=== PATIENT | male | born 1990 | race Caucasian/White ===

== ENCOUNTER 2023-01-07 10:43 | Outpatient (REF) | payer MEDICAID, SELFPAY ==
[2023-01-08 10:59] LABS: Abs Immature Grans 0.01 10^3/uL (0.0-0.06); Absolute Basophil Count 0.04 10^3/uL (0.0-0.2); Absolute Eosinophil Count 0.22 10^3/uL (0.0-0.7); Absolute Lymphocyte Count 1.33 10^3/uL (1.2-3.4); Absolute Monocyte Count 0.55 10^3/uL (0.1-0.8); Basophils % 0.8; Eosinophils % 4.6; HGB 15.5 g/dL (13.5-17.5); Immature Grans % 0.2; MCH 32.3 pg (27.0-33.0); MCHC 34.4 % (32.0-36.0); MCV 94 fL (80-95); MPV 11.9 fL (8.0-11.0); Monocytes % 11.6; Neutrophils % 54.8; Platelet Count 228 10^3/uL (130-400); RDW-SD 41.9 fL; WBC 4.75 10^3/uL (4.4-10.8)
[2023-01-08 11:18] LABS: ALT 35 U/L (16-63); AST 125 U/L (15-37); Albumin 4.4 g/dL (3.4-5.0); Alkaline Phosphatase 53 U/L (46-116); Anion Gap 9.9 mmol/L (3-11); BUN 14 mg/dL (7-18); Bilirubin, Total 1.2 mg/dL (0.2-1.0); CO2 25.1 mmol/L (21.0-32.0); Calcium 9.1 mg/dL (8.5-10.1); Chloride 102 mmol/L (98-107); Estimated GFR 101.92 (mL/min/1.73m2); Glucose 95 mg/dL (74-106); Potassium 4.1 mmol/L (3.5-5.1); Sodium 137 mmol/L (136-145); TSH (W/Ref FT4) 1.57 uIU/mL (0.36-3.74); Total Protein 7.7 g/dL (6.4-8.2)
== END 2023-01-07 10:44 | disposition home or self-care (01) ==
LOC: NCHCN 10:43
PROVIDERS: Visit Provider Family Medicine
DX: F41.8 Other specified anxiety disorders (principal); F10.10 Alcohol abuse, uncomplicated
CPT/HCPCS: 80053; 84443; 85025

== ENCOUNTER 2023-09-15 16:07 | Outpatient (REF) | payer MEDICAID, SELFPAY ==
[2023-09-16 19:45] LABS: HIV-1/2 Ag & Ab Screen Negative (Negative)
[2023-09-16 21:47] LABS: Hepatitis C Ab w Rflx HCV PCR Negative (Negative)
[2023-09-17 10:35] LABS: HSV Type 1 Ab, IgG Positive (Negative); HSV Type 2 Ab, IgG Negative (Negative)
== END 2023-09-15 16:08 | disposition home or self-care (01) ==
LOC: NCHCN 16:07
PROVIDERS: Visit Provider Family Medicine
DX: Z00.00 Encounter for general adult medical examination without abnormal findings (principal); B00.1 Herpesviral vesicular dermatitis
CPT/HCPCS: 86803; 87389; 86695; 86696

== ENCOUNTER 2023-12-08 15:58 | Outpatient (REF) | payer MEDICAID, SELFPAY ==
[2023-12-10 10:35] LABS: HSV Type 1 Ab, IgG Positive (Negative); HSV Type 2 Ab, IgG Negative (Negative)
== END 2023-12-08 15:59 | disposition home or self-care (01) ==
LOC: NCHCN 15:58
PROVIDERS: Visit Provider Family Medicine
DX: Z11.3 Encounter for screening for infections with a predominantly sexual mode of transmission (principal)
CPT/HCPCS: 86695; 86696